=== PATIENT | female | born 1975 | race Caucasian/White ===

== ENCOUNTER → 2016-12-16 | Outpatient (CLI) | payer BC ==
[~2016-12-16] MED LIST: ATOR40TA59 PO; IOHEXOL 300 MG/ML 100ML VIAL. IV ONE; METF1000 PO
--- NOTE | 2016-12-16 16:17 | KCIC ---
Indication: Nausea and vomiting. Axial imaging through the abdomen and pelvis was performed after the administration of intravenous contrast. One or more of the following individualized dose reduction techniques were utilized for this examination: 1. Automated exposure control 2. Adjustment of the mA and/or kV according to patient size 3. Use of iterative reconstruction technique No prior studies are available for comparison. There is linear scarring or atelectasis in the right lower lobe. No discrete liver mass is detected. Gallbladder is unremarkable. There is a large amount of inflammatory stranding identified in the upper abdomen at the level of the pancreatic head and second portion of the duodenum. There is also some stranding in the left abdomen adjacent to the pancreatic tail and inferior aspect of the spleen. There is homogeneous enhancement to the pancreas. No pancreatic necrosis is identified. No well-formed fluid collection is identified. No free air is seen. There is some mild fluid-filled distention of the proximal small bowel. The remainder of the bowel is normal caliber. No free fluid in the abdomen or pelvis is seen. There are small cysts within both ovaries. The uterus and bladder are unremarkable. IMPRESSION: Moderate inflammatory changes are identified in the upper abdomen primarily in the region of the pancreas and proximal small bowel. Features are most suggestive of acute pancreatitis. No pancreatic necrosis or evidence of pseudocyst formation is identified at this time. Correlation with amylase and lipase levels is recommended. No other significant abnormality is seen. Electronically signed by: Ricardo Escobar MD (12/16/2016 4:13 PM)
== END | disposition home or self-care (01) ==
LOC: KCIC CT 15:30
PROVIDERS: ATTEND Nurse Practitioner Family
DX: R10.84 Generalized abdominal pain (principal); R11.2 Nausea with vomiting, unspecified
CPT/HCPCS: 74177; Q9967

== ENCOUNTER 2016-12-17 09:44 | Inpatient (IN) | payer BC ==
[~2016-12-17] VITALS: Ht 156.2 cm; Wt 63.5 kg
[2016-12-17] MEDS ORDERED: IV NORMAL SALINE 1000ML BAG 1,000 ML IV SCH (09:52)
--- NOTE | 2016-12-17 09:52 | PHYS DOC ---
Adult General Chief Complaint Chief Complaint: ABDOMINAL PAIN HPI HPI Patient is a 41 year old female with no significant medical history who presents today with nausea vomiting, left upper quadrant and flank pain bilaterally that began 7 days ago. Patient denies any fever. Denies any hematemesis or melena. She states she was seen by the PCP yesterday and had a CT scan which showed of pancreatitis. She states she was sent to the ED for further workup because though not able to draw any labs outpatient because she was very dehydrated. Review of Systems Review of Systems Constitutional: Denies fever or chills [] Eyes: Denies change in visual acuity, redness, or eye pain [] HENT: Denies nasal congestion or sore throat [] Respiratory: Denies cough or shortness of breath [] Cardiovascular: No additional information not addressed in HPI [] GI: Left upper quadrant abdominal pain : Bilateral flank pain Musculoskeletal: Denies back pain or joint pain [] Integument: Denies rash or skin lesions [] Neurologic: Denies headache, focal weakness or sensory changes [] Endocrine: Denies polyuria or polydipsia [] Current Medications Current Medications Current Medications Medications (Trade) Dose Ordered Sig/Carl Start Time Stop Time Status Last Admin Dose Admin Morphine Sulfate 4 mg PRN Q15MIN PRN 12/17/16 10:00 12/18/16 09:59 Ondansetron HCl (Zofran) 4 mg 1X ONCE 12/17/16 10:00 12/17/16 10:01 DC 12/17/16 10:52 4 MG Sodium Chloride 1,000 ml @ 1,000 mls/hr Q1H 12/17/16 09:52 12/17/16 10:51 DC 12/17/16 10:52 1,000 MLS/HR Allergies Allergies Allergies Coded Allergies Type Severity Reaction Last Updated Verified cephalexin Allergy Intermediate 12/17/16 Yes erythromycin base Allergy Intermediate 12/17/16 Yes Physical Exam Physical Exam Constitutional: Well developed, well nourished, no acute distress, non-toxic appearance. [] HENT: Normocephalic, atraumatic, bilateral external ears normal, oropharynx moist, no oral exudates, nose normal. [] Eyes: PERRLA, EOMI, conjunctiva normal, no discharge. [] Neck: Normal range of motion, no tenderness, supple, no stridor. [] Cardiovascular:Heart rate regular rhythm, no murmur [] Lungs & Thorax: Bilateral breath sounds clear to auscultation [] Abdomen: Bowel sounds normal, soft, mild left upper quadrant tenderness, no right lower quadrant or right upper quadrant tenderness, no masses, no pulsatile masses. [] Skin: Warm, dry, no erythema, no rash. [] Back: No tenderness, mild bilateral CVA tenderness. [] Extremities: No tenderness, no cyanosis, no clubbing, ROM intact, no edema. [] Neurologic: Alert and oriented X 3, normal motor function, normal sensory function, no focal deficits noted. [] Psychologic: Affect normal, judgement normal, mood normal. [] Current Patient Data Vital Signs Vital Signs Date Time Temp Pulse Resp B/P (MAP) Pulse Ox O2 Delivery O2 Flow Rate FiO2 12/17/16 13:03 78 18 153/91 (111) 100 Room Air 12/17/16 10:05 97.2 97.2 Lab Values Laboratory Tests Test 12/17/16 09:50 12/17/16 10:45 Urine Collection Type Unknown Urine Color Hellen Urine Clarity Clear Urine pH 6.0 Urine Specific [place] >=1.030 Urine Protein 30 mg/dL (NEG-TRACE) Urine Glucose (UA) >=1000 mg/dL (NEG) Urine Ketones (Stick) 15 mg/dL (NEG) Urine Blood Large (NEG) Urine Nitrite Negative (NEG) Urine Bilirubin Negative (NEG) Urine Urobilinogen Dipstick 1.0 mg/dL (0.2 mg/dL) Urine Leukocyte Esterase Negative (NEG) Urine RBC >40 /HPF (0-2) Urine WBC 0 /HPF (0-4) Urine Squamous Epithelial Cells Few /LPF Urine Bacteria Few /HPF (0-FEW) Urine Opiates Screen Pos (NEG) Urine Methadone Screen Neg (NEG) Urine Barbiturates Neg (NEG) Urine Phencyclidine Screen Neg (NEG) Urine Amphetamine/Methamphetamine Neg (NEG) Urine Benzodiazepines Screen Pos (NEG) Urine Cocaine Screen Neg (NEG) Urine Cannabinoids Screen Neg (NEG) Urine Ethyl Alcohol Neg (NEG) White Blood Count 12.1 x10^3/uL (4.0-11.0) H Red Blood Count 4.56 x10^6/uL (3.50-5.40) Hemoglobin 14.1 g/dL (12.0-15.5) Hematocrit 40.2 % (36.0-47.0) Mean Corpuscular Volume 88 fL (79-100) Mean Corpuscular Hemoglobin 31 pg (25-35) Mean Corpuscular Hemoglobin Concent 35 g/dL (31-37) Red Cell Distribution Width 13.7 % (11.5-14.5) Platelet Count 303 x10^3/uL (140-400) Neutrophils (%) (Auto) 65 % (31-73) Lymphocytes (%) (Auto) 20 % (24-48) L Monocytes (%) (Auto) 12 % (0-9) H Eosinophils (%) (Auto) 3 % (0-3) Basophils (%) (Auto) 1 % (0-3) Neutrophils # (Auto) 7.8 x10^3uL (1.8-7.7) H Lymphocytes # (Auto) 2.4 x10^3/uL (1.0-4.8) Monocytes # (Auto) 1.4 x10^3/uL (0.0-1.1) H Eosinophils # (Auto) 0.3 x10^3/uL (0.0-0.7) Basophils # (Auto) 0.1 x10^3/uL (0.0-0.2) Segmented Neutrophils % 45 % (35-66) Band Neutrophils % 13 % (0-9) H Lymphocytes % 22 % (24-48) L Monocytes % 16 % (0-10) H Eosinophils % 1 % (0-5) Metamyelocytes % 3 % (0-0) H Platelet Estimate Adequate (ADEQUATE) Prothrombin Time 12.8 SEC (11.7-14.0) Prothrombin Time INR 1.0 (0.8-1.1) Sodium Level 135 mmol/L (136-145) L Potassium Level 3.3 mmol/L (3.5-5.1) L Chloride Level 95 mmol/L (98-107) L Carbon Dioxide Level 29 mmol/L (21-32) Anion Gap 11 (6-14) Blood Urea Nitrogen 12 mg/dL (7-20) Creatinine 1.1 mg/dL (0.6-1.0) H Estimated GFR (Cockcroft-Gault) 55.0 Glucose Level 305 mg/dL (70-99) H Calcium Level 9.9 mg/dL (8.5-10.1) Magnesium Level 2.2 mg/dL (1.8-2.4) Total Bilirubin 0.4 mg/dL (0.2-1.0) Direct Bilirubin 0.2 mg/dL (0.0-0.2) Aspartate Amino Transferase (AST) 50 U/L (15-37) H Alanine Aminotransferase (ALT) 91 U/L (14-59) H Alkaline Phosphatase 226 U/L (46-116) H Creatine Kinase 50 U/L (26-192) Creatine Kinase MB (Mass) < 0.5 ng/mL (0.0-3.6) Creatine Kinase MB Relative Index % (0-4) Troponin I Quantitative < 0.017 ng/mL (0.000-0.055) XI-Wxa-B-Type Natriuretic Peptide 31 pg/mL (0-124) Total Protein 8.4 g/dL (6.4-8.2) H Albumin 3.1 g/dL (3.4-5.0) L Lipase 426 U/L (73-393) H Thyroid Stimulating Hormone (TSH) 1.533 uIU/mL (0.358-3.74) Serum Test, Qualitative Negative (NEG) Laboratory Tests 12/17/16 10:45 Laboratory Tests 12/17/16 10:45 EKG EKG [] Radiology/Procedures Radiology/Procedures [] Course & Med Decision Making Course & Med Decision Making Pertinent Labs and Imaging studies reviewed. (See chart for details) Patient is in the ED with left upper quadrant abdominal pain as well as flank pain after being diagnosed with pancreatitis yesterday as an outpatient. CBC with a WBC of 12.1 and a bandemia. CMP with alkaline phosphatase of 226, AST 50 , ALT 91, lipase 426. Patient was admitted under Dr. Aguilar. GI consult was placed. Dragon Disclaimer Dragon Disclaimer This electronic medical record was generated, in whole or in part, using a voice recognition dictation system. Departure Departure Impression: Primary Impression: Pancreatitis Additional Impressions: Nausea and vomiting Intractable abdominal pain Disposition: ADMITTED INPATIENT Admitting Physician: Corrie Aguilar Condition: STABLE Referrals: STEPHEN NICHOLSON (PCP) Problem Qualifiers Primary Impression: Pancreatitis Chronicity: acute Pancreatitis type: unspecified pancreatitis type Acute pancreatitis complication: unspecified Qualified Codes: K85.90 - Acute pancreatitis without necrosis or infection, unspecified Additional Impressions: Nausea and vomiting Vomiting type: unspecified Vomiting Intractability: intractable Qualified Codes: R11.2 - Nausea with vomiting, unspecified RAUL HERNANDEZ MD December 17, 2016 09:52 PHONG FERNANDES APRN December 17, 2016 15:44
[2016-12-17] MEDS ORDERED: ONDANSETRON PF 4 MG/2 ML VIAL. IV ONE (10:00)
[2016-12-17] MEDS ORDERED: MORPHINE SULFATE 4 MG/ML DISP.SYRIN. IV/SQ PRN (10:00)
--- NOTE | 2016-12-17 10:47 | RAD ---
Exam: AP portable chest. History: Nausea. Comparison: None. Findings: The heart and mediastinal structures are within normal limits for size. Lungs are without infiltrate. No pneumothorax or pleural effusion is appreciated. Impression: 1. No acute cardiopulmonary process.
[2016-12-17 11:00] LABS: BILIRUBIN,URINE NEGATIVE (NEG); GLUCOSE,URINE >=1000 mg/dL (NEG); NITRITE,URINE NEGATIVE (NEG); PROTEIN,URINE 30 mg/dL (NEG-TRACE)
[2016-12-17 11:02] LABS: BASO # 0.1 x10^3/uL (0.0-0.2); BASO % 1 % (0-3); EOS % 3 % (0-3); HEMATOCRIT 40.2 % (36.0-47.0); HEMOGLOBIN 14.1 g/dL (12.0-15.5); LYMPH # 2.4 x10^3/uL (1.0-4.8); LYMPH % 20 % (24-48); MEAN CORPUSCULAR HEMOGLOBIN 31 pg (25-35); MEAN CORPUSCULAR HGB CONC 35 g/dL (31-37); MEAN CORPUSCULAR VOLUME 88 fL (79-100); MONO % 12 % (0-9); NEUT % 65 % (31-73); PLATELET COUNT 303 x10^3/uL (140-400); RED BLOOD COUNT 4.56 x10^6/uL (3.50-5.40); RED CELL DISTRIBUTION WIDTH 13.7 % (11.5-14.5); WHITE BLOOD COUNT 12.1 x10^3/uL (4.0-11.0)
[2016-12-17 11:06] LABS: BARBITURATES NEG (NEG); BENZODIAZEPINES POS (NEG); CANNABINOIDS NEG (NEG); COCAINE NEG (NEG); METHADONE NEG (NEG); OPIATES POS (NEG); PHENCYCLIDINE NEG (NEG)
[2016-12-17 11:11] LABS: CALCIUM 9.9 mg/dL (8.5-10.1); CREATININE 1.1 mg/dL (0.6-1.0); POTASSIUM 3.3 mmol/L (3.5-5.1)
[2016-12-17 11:17] LABS: ALBUMIN 3.1 g/dL (3.4-5.0); DIRECT BILIRUBIN 0.2 mg/dL (0.0-0.2); MAGNESIUM 2.2 mg/dL (1.8-2.4); PROTHROMBIN TIME PATIENT 12.8 SEC (11.7-14.0); TOTAL BILIRUBIN 0.4 mg/dL (0.2-1.0); TOTAL PROTEIN 8.4 g/dL (6.4-8.2)
[2016-12-17 11:21] LABS: NEG OBC SER NEG; POS OBC SER POS
[2016-12-17 11:25] LABS: CREATINE KINASE 50 U/L (26-192)
[2016-12-17 11:26] LABS: CKMB MASS < 0.5 ng/mL (0.0-3.6)
--- NOTE | 2016-12-17 11:33 | EKG ---
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
[2016-12-17 11:35] LABS: BACTERIA,URINE FEW /HPF (0-FEW); RBC,URINE >40 /HPF (0-2); SQUAMOUS EPITHELIAL CELL,UR FEW /LPF; WBC,URINE 0 /HPF (0-4)
[2016-12-17 13:26] LABS: % EOS 1 % (0-5); PLT ESTIMATE ADEQUATE (ADEQUATE)
[2016-12-17] MEDS ORDERED: MORPHINE SULFATE 10 MG/ML VIAL. IV ONE (14:00)
--- NOTE | 2016-12-17 14:59 | ACF ---
Admit Criteria Forms Admit Criteria Forms Admit Criteria Forms PANCREATITIS Clinical Indications for Admission to Inpatient Care (Place 'X' for any and all applicable criteria): Admission is indicated for 1 or more of the following (1)(2)(3)(4): [ ]I. Acute pancreatitis[A] as indicated by 2 or MORE of the following: [ ]a) Abdominal pain (eg, epigastric, left upper quadrant) [ ]b) Serum amylase or serum lipase greater than 3 times the upper limit of normal [ ]c) Characteristic findings from abdominal imaging (eg, pancreatic inflammation, pancreatic necrosis, peripancreatic fluid collection)[B] [X]II. Pancreatitis (acute or chronic ) requiring inpatient care as indicated by 1 or more of the following [ ]a) Inability to maintain oral hydration Hypoxemia [ ]b) Evidence of infection (eg, fever, peripancreatic abscess) [X]c) Severe pain requiring acute inpatient management [ ]d) Hemodynamic instability [ ]e) Hypoxemia [ ]f) Acute renal failure [ ]g) Severe electrolyte abnormalities Extended stay beyond goal length of stay may be needed for (1)(11) [ ]a) Severe acute pancreatitis (10)(19) [ ]b) Persistent symptoms, ascites, or pleural effusion [ ]c) Abdominal compartment syndrome (10) [ ]d) Late complications [ ]e) Gallstones in gallbladder [ ]f) Acute renal failure (27) The original [employer] content created by [employer] has been revised. The portions of the content which have been revised are identified through the use of italic text or in bold,and [facility] has neither reviewed nor approved the modified material.All other unmodified content is copyright [facility]. Please see references footnoted in the original [employer] edition 2016 TOMA REHMAN December 17, 2016 14:59
[2016-12-17] MEDS ORDERED: IV NORMAL SALINE 1000ML BAG 1,000 ML IV ONE (15:00)
[2016-12-17] MEDS ORDERED: ONDANSETRON PF 4 MG/2 ML VIAL. IV PRN ×2 (15:00→17:02)
--- NOTE | 2016-12-17 15:59 | PDOC2 ---
GI CONSULT Reason For Consult: Pancreatitis HPI: HPI: 41 y/o female seen in ER w/ pending admission. Reports has been ill since last w/ diffuse abdominal discomfort w/ radiation to bilateral flanks. Denies precipitating events, has never been sick w/ this before. Also had vomiting from to Thursday and hasn't really eaten much since then. [place] "hot" like she had a fever on and Thursday. Saw her PCP, had a CT as an outpatient on 12/16 which was suggestive of acute pancreatitis, unremarkable gallbladder. PCP unable to draw labs, sent to ER for this reason. H/o constipation controlled w/ Miralax. Denies reflux/heartburn, dysphagia, hematochezia, melena, hematemesis. No h/o liver or gallbladder problems. No previous colonoscopy, possibly had EGD at [facility] years ago. No NSAIDs. Denies daily medication, says has tried nothing for pain at home. Some tachycardia and hypertension in ER. Labs: WBC 12.1, lipase 426, Alk Phos 226, AST 50, ALT 91. Tox + opiates and benzos. CT below. PMH: PMH: constipation, , tubal ligation FH: Family History: No pertinent hx (denies gallbladder, pancreas, liver, GI malignancy, IBD) Social History: Smoke: <1 pack per day ALCOHOL: occassional (1-2 drinks weekly) Drugs: None ROS: GEN: +fever HEENT: Denies blurred vision, sore throat CV: Denies chest pain RESP: Denies shortness of air, cough GI: Per HPI : Denies hematuria, dysuria ENDO: Denies weight changes NEURO: Denies confusion, dizziness MSK: Denies weakness, joint pain/swelling SKIN: Denies jaundice, pruritus Vitals: Vitals: Vital Signs Date Time Temp Pulse Resp B/P (MAP) Pulse Ox O2 Delivery O2 Flow Rate FiO2 12/17/16 14:16 18 12/17/16 14:03 86 125/88 (100) 100 Room Air 12/17/16 10:05 97.2 97.2 Labs: Labs: Laboratory Tests Test 12/17/16 09:50 12/17/16 10:45 Urine Collection Type Unknown Urine Color Hellen Urine Clarity Clear Urine pH 6.0 Urine Specific [place] >=1.030 Urine Protein 30 mg/dL (NEG-TRACE) Urine Glucose (UA) >=1000 mg/dL (NEG) Urine Ketones (Stick) 15 mg/dL (NEG) Urine Blood Large (NEG) Urine Nitrite Negative (NEG) Urine Bilirubin Negative (NEG) Urine Urobilinogen Dipstick 1.0 mg/dL (0.2 mg/dL) Urine Leukocyte Esterase Negative (NEG) Urine RBC >40 /HPF (0-2) Urine WBC 0 /HPF (0-4) Urine Squamous Epithelial Cells Few /LPF Urine Bacteria Few /HPF (0-FEW) Urine Opiates Screen Pos (NEG) Urine Methadone Screen Neg (NEG) Urine Barbiturates Neg (NEG) Urine Phencyclidine Screen Neg (NEG) Urine Amphetamine/Methamphetamine Neg (NEG) Urine Benzodiazepines Screen Pos (NEG) Urine Cocaine Screen Neg (NEG) Urine Cannabinoids Screen Neg (NEG) Urine Ethyl Alcohol Neg (NEG) White Blood Count 12.1 x10^3/uL (4.0-11.0) Red Blood Count 4.56 x10^6/uL (3.50-5.40) Hemoglobin 14.1 g/dL (12.0-15.5) Hematocrit 40.2 % (36.0-47.0) Mean Corpuscular Volume 88 fL (79-100) Mean Corpuscular Hemoglobin 31 pg (25-35) Mean Corpuscular Hemoglobin Concent 35 g/dL (31-37) Red Cell Distribution Width 13.7 % (11.5-14.5) Platelet Count 303 x10^3/uL (140-400) Neutrophils (%) (Auto) 65 % (31-73) Lymphocytes (%) (Auto) 20 % (24-48) Monocytes (%) (Auto) 12 % (0-9) Eosinophils (%) (Auto) 3 % (0-3) Basophils (%) (Auto) 1 % (0-3) Neutrophils # (Auto) 7.8 x10^3uL (1.8-7.7) Lymphocytes # (Auto) 2.4 x10^3/uL (1.0-4.8) Monocytes # (Auto) 1.4 x10^3/uL (0.0-1.1) Eosinophils # (Auto) 0.3 x10^3/uL (0.0-0.7) Basophils # (Auto) 0.1 x10^3/uL (0.0-0.2) Segmented Neutrophils % 45 % (35-66) Band Neutrophils % 13 % (0-9) Lymphocytes % 22 % (24-48) Monocytes % 16 % (0-10) Eosinophils % 1 % (0-5) Metamyelocytes % 3 % (0-0) Platelet Estimate Adequate (ADEQUATE) Prothrombin Time 12.8 SEC (11.7-14.0) Prothromb Time International Ratio 1.0 (0.8-1.1) Sodium Level 135 mmol/L (136-145) Potassium Level 3.3 mmol/L (3.5-5.1) Chloride Level 95 mmol/L (98-107) Carbon Dioxide Level 29 mmol/L (21-32) Anion Gap 11 (6-14) Blood Urea Nitrogen 12 mg/dL (7-20) Creatinine 1.1 mg/dL (0.6-1.0) Estimated GFR (Cockcroft-Gault) 55.0 Glucose Level 305 mg/dL (70-99) Calcium Level 9.9 mg/dL (8.5-10.1) Magnesium Level 2.2 mg/dL (1.8-2.4) Total Bilirubin 0.4 mg/dL (0.2-1.0) Direct Bilirubin 0.2 mg/dL (0.0-0.2) Aspartate Amino Transf (AST/SGOT) 50 U/L (15-37) Alanine Aminotransferase (ALT/SGPT) 91 U/L (14-59) Alkaline Phosphatase 226 U/L (46-116) Creatine Kinase 50 U/L (26-192) Creatine Kinase MB (Mass) < 0.5 ng/mL (0.0-3.6) Creatine Kinase MB Relative Index % (0-4) Troponin I Quantitative < 0.017 ng/mL (0.000-0.055) LJ-Cci-H-Type Natriuretic Peptide 31 pg/mL (0-124) Total Protein 8.4 g/dL (6.4-8.2) Albumin 3.1 g/dL (3.4-5.0) Lipase 426 U/L (73-393) Thyroid Stimulating Hormone (TSH) 1.533 uIU/mL (0.358-3.74) Serum Test, Qualitative Negative (NEG) Allergies: Coded Allergies: cephalexin (Verified Allergy, Intermediate, 12/17/16) erythromycin base (Verified Allergy, Intermediate, 12/17/16) Medications: Current Medications Medications (Trade) Dose Ordered Sig/Carl Route PRN Reason Start Time Stop Time Status Last Admin Dose Admin Sodium Chloride 1,000 ml @ 1,000 mls/hr Q1H IV 12/17/16 09:52 12/17/16 10:51 DC 12/17/16 10:52 Ondansetron HCl (Zofran) 4 mg 1X ONCE IV 12/17/16 10:00 12/17/16 10:01 DC 12/17/16 10:52 Morphine Sulfate 5 mg 1X ONCE IV 12/17/16 14:00 12/17/16 14:01 DC 12/17/16 14:16 Imaging: Imaging: CXR 12/17/16 Impression: 1. No acute cardiopulmonary process. CT A/P w/ IV contrast 12/16/16 There is linear scarring or atelectasis in the right lower lobe. No discrete liver mass is detected. Gallbladder is unremarkable. There is a large amount of inflammatory stranding identified in the upper abdomen at the level of the pancreatic head and second portion of the duodenum. There is also some stranding in the left abdomen adjacent to the pancreatic tail and inferior aspect of the spleen. There is homogeneous enhancement to the pancreas. No pancreatic necrosis is identified. No well-formed fluid collection is identified. No free air is seen. There is some mild fluid-filled distention of the proximal small bowel. The remainder of the bowel is normal caliber. No free fluid in the abdomen or pelvis is seen. There are small cysts within both ovaries. The uterus and bladder are unremarkable. IMPRESSION: Moderate inflammatory changes are identified in the upper abdomen primarily in the region of the pancreas and proximal small bowel. Features are most suggestive of acute pancreatitis. No pancreatic necrosis or evidence of pseudocyst formation is identified at this time. Correlation with amylase and lipase levels is recommended. No other significant abnormality is seen. PE: GEN: NAD HEENT: Atraumatic, PERRL LUNGS: CTAB HEART: RRR ABD: BS+, tenderness most prominent periumbilical to RUQ, also toward right flank EXTREMITY: No edema SKIN: No rashes, no jaundice NEURO/PSYCH: A & O 3 A/P: A/P: Abdominal pain, n/v, ?fever -onset 6 days ago, had outpt CT Abnormal CT, elevated lipase, elevated LFTs, leukocytosis -inflammatory changes in upper abdomen in region of the pancreas and proximal small bowel, most suggestive of acute pancreatitis -gallbladder unremarkable, no h/o pancreatitis, denies significant alcohol use Constipation - controlled w/ Miralax CRC screen -no previous colonoscopy, average risk -- Unclear etiology at this point. Medical therapy for pancreatitis. NPO w/ serial labs. Will also check abd US r/o cholelithiasis. TAYLOR TERRAZAS December 17, 2016 15:59
[2016-12-17 16:00] VITALS: BP 121/76
--- NOTE | 2016-12-17 17:12 | PDOC1 ---
History and Physical Date of Admission Date of Admission DATE: 12/17/16 TIME: 17:03 Identification/Chief Complaint Chief Complaint abd pain, vomiting Problems: Source Source: Caregiver, Chart review, Patient History of Present Illness History of Present Illness 41 y.o Female with no significant past medical comes in with 1 week hx acute abd pain, mostly R side, maybe epigastric too, no radiation to back, 10.10, no identifiable alleviating factors, started to have emesis few days ago hence went to ER. Prior to ER, sought care, PCP did CT abd which apparently showed normal GB but pancreatitis,. PT unable to keep stuff down per ER (pt claims she can keep liquids down), hence admitted, K ok, Crea ok, VS ok, LIpase 400s, but pt significantly tender on abd exam. LFTs mildly high in the 50s, alk phosp mid 200s, BS 300s (not known DM), WBC 12, Crea 1.1, K low 3.3. Claims not a drinker, GB still present, non obese, never had acute pancreatitis before Past Medical History Cardiovascular: No pertinent hx Pulmonary: No pertinent hx GI: No pertinent hx Heme/Onc: No pertinent hx Hepatobiliary: No pertinent hx Psych: No pertinent hx Rheumatologic: No pertinent hx Infectious disease: No pertinent hx ENT: No pertinent hx Renal/: No pertinent hx Endocrine: No pertinent hx Dermatology: No pertinent hx Past Surgical History Past Surgical History: , Tubal Ligation Family History Family History: No Significant (reveiwed, no signif) Social History Smoke: No ALCOHOL: none (1-2 drinks weekly) Drugs: None Current Problem List Problem List Problems Medical Problems: (1) Intractable abdominal pain Status: Acute (2) Nausea and vomiting Status: Acute (3) Pancreatitis Status: Acute Problems: Current Medications Current Medications Current Medications Morphine Sulfate 4 mg PRN Q15MIN PRN IV/SQ PAIN GREATER THAN 3/10; Start at 10:00; Stop 12/18/16 at 09:59 Sodium Chloride 1,000 ml @ 1,000 mls/hr Q1H IV Last administered on 12/17/16 10:52; Start 12/17/16 at 09:52; Stop 12/17/16 at 10:51; Status DC Ondansetron HCl (Zofran) 4 mg 1X ONCE IV Last administered on 12/17/16 10:52 ; Start 12/17/16 at 10:00; Stop 12/17/16 at 10:01; Status DC Morphine Sulfate 5 mg 1X ONCE IV Last administered on 12/17/16 14:16; Start 12/17/16 at 14:00; Stop 12/17/16 at 14:01; Status DC Ondansetron HCl (Zofran) 4 mg PRN Q8HRS PRN IV NAUSEA/VOMITING; Start 12/17/16 at 15:00; Stop 12/18/16 at 14:59 Morphine Sulfate 4 mg PRN Q2HR PRN IV PAIN; Start 12/17/16 at 15:00; Stop at 14:59 Sodium Chloride 1,000 ml @ 125 mls/hr 1X ONCE IV Last administered on 16:53; Start 12/17/16 at 15:00; Stop 12/17/16 at 22:59 Active Scripts Active Reported No Known Medications Prior To Admisstion (Info) Each 1 Each Allergies Allergies: Coded Allergies: cephalexin (Verified Allergy, Intermediate, 12/17/16) erythromycin base (Verified Allergy, Intermediate, 12/17/16) ROS General: No: Chills, Night Sweats, Fatigue, Malaise, Appetite, Other PSYCHOLOGICAL ROS: No: Anxiety, Behavioral Disorder, Concentration difficultie , Decreased libido, Depression, Disorientation, Hallucinations, Hostility, Irritablity, Memory difficulties, Mood Swings, Obsessive thoughts, Physical abuse, Sexual abuse, Sleep disturbances, Suicidal ideation, Other Eyes: No Blurry vision, No Decreased vision, No Double vision, No Dry eyes, No Excessive tearing, No Eye Pain, No Itchy Eyes, No Loss of vision, No Photophobia , No Scotomata, No Uses contacts, No Uses glasses, No Other HEENT: No: Heacaches, Visual Changes, Hearing change, Nasal congestion, Nasal discharge, Oral lesions, Sinus pain, Sore Throat, Epistaxis, Sneezing, Snoring, Tinnitus, Vertigo, Vocal changes, Other ALLERGY AND IMMUNOLOGY: No: Hives, Insect Bite Sensitivity, Itchy/Watery Eyes, Nasal Congestion, Post Nasal Drip, Seasonal Allergies, Other Hematological and Lymphatic: No: Bleeding Problems, Blood Clots, Blood Transfusions, Brusing, Night Sweats, Pallor, Swollen Lymph Nodes, Other ENDOCRINE: No: Breast Changes, Galactorrhea, Hair Pattern Changes, Hot Flashes , Malaise/lethargy, Mood Swings, Palpitations, Polydipsia/polyuria, Skin Changes , Temperature Intolerance, Unexpected Weight Changes, Other Breast: No New/Changing Breast Lumps, No Nipple changes, No Nipple discharge, No Other Respiratory: No: Cough, Hemoptysis, Orthopnea, Pleuritic Pain, Shortness of breath, SOB with excertion, Sputum Changes, Stridor, Tachypnea, Wheezing, Other Cardiovascular: No Chest Pain, No Palpitations, No Orthopnea, No Paroxysmal Noc. Dyspnea, No Edema, No Lt Headedness, No Other Gastrointestinal: Yes Nausea, Yes Vomiting, Yes Abdominal Pain Genitourinary: No Dysuria, No Frequency, No Incontinence, No Hematuria, No Retention, No Discharge, No Urgency, No Pain, No Flank Pain, No Other, No , No , No , No , No , No , No Musculoskeletal: No Gait Disturbance, No Joint Pain, No Joint Stiffness, No Joint Swelling, No Muscle Pain, No Muscular Weakness, No Pain In:, No Swelling In:, No Other Neurological: No Behavorial Changes, No Bowel/Bladder ControlChng, No Confusion , No Dizziness, No Gait Disturbance, No Headaches, No Impaired Coord/balance, No Memory Loss, No Numbness/Tingling, No Seizures, No Speech Problems, No Tremors, No Visual Changes, No Weakness, No Other Skin: No Dry Skin, No Eczema, No Hair Changes, No Lumps, No Mole Changes, No Mottling, No Nail Changes, No Pruritus, No Rash, No Skin Lesion Changes, No Other, No Acne Physical Exam General: Alert, Oriented X3, Cooperative, No acute distress, mild distress, Other (from pain on abd exam) HEENT: Atraumatic, PERRLA Lungs: Clear to auscultation Heart: S1S2, RRR, no thrills, no rubs, no gallops, no murmurs Cardiovascular: S1, S2 Breasts: Normal, Rt breast nml w/o mass, Lt breast nml w/o mass, Nipples normal Abdomen: Soft, Other (tenderness epigastric and rUQ, no guarding, pos BS) Rectal Exam: not examined PELVIC: Nml ext genitalia Extremities: No clubbing, No cyanosis, No edema, Normal pulses, No tenderness/ swelling Skin: No rashes, No breakdown, No significant lesion Neuro: Normal gait, Normal speech, Strength at 5/5 X4 ext, Normal tone, Sensation intact, Cranial nerves 3-12 NL, Reflexes 2+ Psych/Mental Status: Mental status NL, Mood NL Vitals Vitals Vital Signs Date Time Temp Pulse Resp B/P (MAP) Pulse Ox O2 Delivery O2 Flow Rate FiO2 12/17/16 16:00 97.9 75 18 121/76 (91) 93 Room Air 97.9 Labs Labs Laboratory Tests Test 12/17/16 09:50 12/17/16 10:45 Urine Collection Type Unknown Urine Color Hellen Urine Clarity Clear Urine pH 6.0 Urine Specific Pyatt >=1.030 Urine Protein 30 mg/dL (NEG-TRACE) Urine Glucose (UA) >=1000 mg/dL (NEG) Urine Ketones (Stick) 15 mg/dL (NEG) Urine Blood Large (NEG) Urine Nitrite Negative (NEG) Urine Bilirubin Negative (NEG) Urine Urobilinogen Dipstick 1.0 mg/dL (0.2 mg/dL) Urine Leukocyte Esterase Negative (NEG) Urine RBC >40 /HPF (0-2) Urine WBC 0 /HPF (0-4) Urine Squamous Epithelial Cells Few /LPF Urine Bacteria Few /HPF (0-FEW) Urine Opiates Screen Pos (NEG) Urine Methadone Screen Neg (NEG) Urine Barbiturates Neg (NEG) Urine Phencyclidine Screen Neg (NEG) Urine Amphetamine/Methamphetamine Neg (NEG) Urine Benzodiazepines Screen Pos (NEG) Urine Cocaine Screen Neg (NEG) Urine Cannabinoids Screen Neg (NEG) Urine Ethyl Alcohol Neg (NEG) White Blood Count 12.1 x10^3/uL (4.0-11.0) Red Blood Count 4.56 x10^6/uL (3.50-5.40) Hemoglobin 14.1 g/dL (12.0-15.5) Hematocrit 40.2 % (36.0-47.0) Mean Corpuscular Volume 88 fL (79-100) Mean Corpuscular Hemoglobin 31 pg (25-35) Mean Corpuscular Hemoglobin Concent 35 g/dL (31-37) Red Cell Distribution Width 13.7 % (11.5-14.5) Platelet Count 303 x10^3/uL (140-400) Neutrophils (%) (Auto) 65 % (31-73) Lymphocytes (%) (Auto) 20 % (24-48) Monocytes (%) (Auto) 12 % (0-9) Eosinophils (%) (Auto) 3 % (0-3) Basophils (%) (Auto) 1 % (0-3) Neutrophils # (Auto) 7.8 x10^3uL (1.8-7.7) Lymphocytes # (Auto) 2.4 x10^3/uL (1.0-4.8) Monocytes # (Auto) 1.4 x10^3/uL (0.0-1.1) Eosinophils # (Auto) 0.3 x10^3/uL (0.0-0.7) Basophils # (Auto) 0.1 x10^3/uL (0.0-0.2) Segmented Neutrophils % 45 % (35-66) Band Neutrophils % 13 % (0-9) Lymphocytes % 22 % (24-48) Monocytes % 16 % (0-10) Eosinophils % 1 % (0-5) Metamyelocytes % 3 % (0-0) Platelet Estimate Adequate (ADEQUATE) Prothrombin Time 12.8 SEC (11.7-14.0) Prothromb Time International Ratio 1.0 (0.8-1.1) Sodium Level 135 mmol/L (136-145) Potassium Level 3.3 mmol/L (3.5-5.1) Chloride Level 95 mmol/L (98-107) Carbon Dioxide Level 29 mmol/L (21-32) Anion Gap 11 (6-14) Blood Urea Nitrogen 12 mg/dL (7-20) Creatinine 1.1 mg/dL (0.6-1.0) Estimated GFR (Cockcroft-Gault) 55.0 Glucose Level 305 mg/dL (70-99) Calcium Level 9.9 mg/dL (8.5-10.1) Magnesium Level 2.2 mg/dL (1.8-2.4) Total Bilirubin 0.4 mg/dL (0.2-1.0) Direct Bilirubin 0.2 mg/dL (0.0-0.2) Aspartate Amino Transf (AST/SGOT) 50 U/L (15-37) Alanine Aminotransferase (ALT/SGPT) 91 U/L (14-59) Alkaline Phosphatase 226 U/L (46-116) Creatine Kinase 50 U/L (26-192) Creatine Kinase MB (Mass) < 0.5 ng/mL (0.0-3.6) Creatine Kinase MB Relative Index % (0-4) Troponin I Quantitative < 0.017 ng/mL (0.000-0.055) YI-Qln-E-Type Natriuretic Peptide 31 pg/mL (0-124) Total Protein 8.4 g/dL (6.4-8.2) Albumin 3.1 g/dL (3.4-5.0) Lipase 426 U/L (73-393) Thyroid Stimulating Hormone (TSH) 1.533 uIU/mL (0.358-3.74) Serum Test, Qualitative Negative (NEG) Laboratory Tests Test 12/17/16 09:50 12/17/16 10:45 Urine Collection Type Unknown Urine Color Hellen Urine Clarity Clear Urine pH 6.0 Urine Specific Pyatt >=1.030 Urine Protein 30 mg/dL (NEG-TRACE) Urine Glucose (UA) >=1000 mg/dL (NEG) Urine Ketones (Stick) 15 mg/dL (NEG) Urine Blood Large (NEG) Urine Nitrite Negative (NEG) Urine Bilirubin Negative (NEG) Urine Urobilinogen Dipstick 1.0 mg/dL (0.2 mg/dL) Urine Leukocyte Esterase Negative (NEG) Urine RBC >40 /HPF (0-2) Urine WBC 0 /HPF (0-4) Urine Squamous Epithelial Cells Few /LPF Urine Bacteria Few /HPF (0-FEW) Urine Opiates Screen Pos (NEG) Urine Methadone Screen Neg (NEG) Urine Barbiturates Neg (NEG) Urine Phencyclidine Screen Neg (NEG) Urine Amphetamine/Methamphetamine Neg (NEG) Urine Benzodiazepines Screen Pos (NEG) Urine Cocaine Screen Neg (NEG) Urine Cannabinoids Screen Neg (NEG) Urine Ethyl Alcohol Neg (NEG) White Blood Count 12.1 x10^3/uL (4.0-11.0) Red Blood Count 4.56 x10^6/uL (3.50-5.40) Hemoglobin 14.1 g/dL (12.0-15.5) Hematocrit 40.2 % (36.0-47.0) Mean Corpuscular Volume 88 fL (79-100) Mean Corpuscular Hemoglobin 31 pg (25-35) Mean Corpuscular Hemoglobin Concent 35 g/dL (31-37) Red Cell Distribution Width 13.7 % (11.5-14.5) Platelet Count 303 x10^3/uL (140-400) Neutrophils (%) (Auto) 65 % (31-73) Lymphocytes (%) (Auto) 20 % (24-48) Monocytes (%) (Auto) 12 % (0-9) Eosinophils (%) (Auto) 3 % (0-3) Basophils (%) (Auto) 1 % (0-3) Neutrophils # (Auto) 7.8 x10^3uL (1.8-7.7) Lymphocytes # (Auto) 2.4 x10^3/uL (1.0-4.8) Monocytes # (Auto) 1.4 x10^3/uL (0.0-1.1) Eosinophils # (Auto) 0.3 x10^3/uL (0.0-0.7) Basophils # (Auto) 0.1 x10^3/uL (0.0-0.2) Segmented Neutrophils % 45 % (35-66) Band Neutrophils % 13 % (0-9) Lymphocytes % 22 % (24-48) Monocytes % 16 % (0-10) Eosinophils % 1 % (0-5) Metamyelocytes % 3 % (0-0) Platelet Estimate Adequate (ADEQUATE) Prothrombin Time 12.8 SEC (11.7-14.0) Prothromb Time International Ratio 1.0 (0.8-1.1) Sodium Level 135 mmol/L (136-145) Potassium Level 3.3 mmol/L (3.5-5.1) Chloride Level 95 mmol/L (98-107) Carbon Dioxide Level 29 mmol/L (21-32) Anion Gap 11 (6-14) Blood Urea Nitrogen 12 mg/dL (7-20) Creatinine 1.1 mg/dL (0.6-1.0) Estimated GFR (Cockcroft-Gault) 55.0 Glucose Level 305 mg/dL (70-99) Calcium Level 9.9 mg/dL (8.5-10.1) Magnesium Level 2.2 mg/dL (1.8-2.4) Total Bilirubin 0.4 mg/dL (0.2-1.0) Direct Bilirubin 0.2 mg/dL (0.0-0.2) Aspartate Amino Transf (AST/SGOT) 50 U/L (15-37) Alanine Aminotransferase (ALT/SGPT) 91 U/L (14-59) Alkaline Phosphatase 226 U/L (46-116) Creatine Kinase 50 U/L (26-192) Creatine Kinase MB (Mass) < 0.5 ng/mL (0.0-3.6) Creatine Kinase MB Relative Index % (0-4) Troponin I Quantitative < 0.017 ng/mL (0.000-0.055) VV-Noc-N-Type Natriuretic Peptide 31 pg/mL (0-124) Total Protein 8.4 g/dL (6.4-8.2) Albumin 3.1 g/dL (3.4-5.0) Lipase 426 U/L (73-393) Thyroid Stimulating Hormone (TSH) 1.533 uIU/mL (0.358-3.74) Serum Test, Qualitative Negative (NEG) VTE Prophylaxis Ordered VTE Prophylaxis Devices: Yes VTE Pharmacological Prophylaxi: Yes Assessment/Plan Assessment/Plan 1. Acute pancreatitis, first episode 2. NOn etoh drinker 3. Mild hypokalemia sec to emesis/GI loss 4. Elevated LFTs, mild 5./ elevated alk phosph 6. elevated BS (300s) with no dx DM 7, ANTIONE, sec to GI loss PLAN: Admit 2 MN Need to check GB - make sure no GB stones though on CT report per pt account, claims was told was normal Check hgba1c given high BS COnsult GI NPO IVF aggressive Replac K iV since nPO Recheck lipase and BMP sara- monitor crea pain control Seen at ER LONG Munoz MD December 17, 2016 17:12
[2016-12-17] MEDS: IV NORMAL SALINE 1000ML BAG 1,000 ML IV SCH (17:15)
[2016-12-17] MEDS: POTASSIUM CHLORIDE 10MEQ 100 ML IV SCH ×2 (17:36→21:18)
[2016-12-17] MEDS: MORPHINE SULFATE 4 MG/ML DISP.SYRIN. IV PRN ×2 (17:41→21:19)
[2016-12-17 19:00] VITALS: BP 125/78
[2016-12-17] MEDS: FAMOTIDINE 20 MG/2 ML VIAL IVP SCH (21:17)
[2016-12-17 23:00] VITALS: BP 120/80
[2016-12-18] MEDS ORDERED: diphenhydrAMINE 50 MG/ML VIAL IVP PRN (01:00)
[2016-12-18] MEDS: IV NORMAL SALINE 1000ML BAG 1,000 ML IV SCH ×3 (02:20→19:48)
[2016-12-18 03:00] VITALS: BP 110/75
[2016-12-18] MEDS: MORPHINE SULFATE 4 MG/ML DISP.SYRIN. IV PRN (04:31)
[2016-12-18 05:43] LABS: BASO # 0.1 x10^3/uL (0.0-0.2); BASO % 1 % (0-3); EOS % 3 % (0-3); HEMATOCRIT 38.2 % (36.0-47.0); HEMOGLOBIN 12.6 g/dL (12.0-15.5); LYMPH # 2.2 x10^3/uL (1.0-4.8); LYMPH % 22 % (24-48); MEAN CORPUSCULAR HEMOGLOBIN 30 pg (25-35); MEAN CORPUSCULAR HGB CONC 33 g/dL (31-37); MEAN CORPUSCULAR VOLUME 92 fL (79-100); MONO % 12 % (0-9); NEUT % 63 % (31-73); PLATELET COUNT 241 x10^3/uL (140-400); RED BLOOD COUNT 4.14 x10^6/uL (3.50-5.40); RED CELL DISTRIBUTION WIDTH 13.5 % (11.5-14.5); WHITE BLOOD COUNT 10.2 x10^3/uL (4.0-11.0)
[2016-12-18 06:16] LABS: ALBUMIN 2.5 g/dL (3.4-5.0); ALBUMIN/GLOBULIN RATIO 0.7 (1.0-1.7); CALCIUM 8.3 mg/dL (8.5-10.1); GFR 61.4; POTASSIUM 3.8 mmol/L (3.5-5.1); TOTAL BILIRUBIN 0.3 mg/dL (0.2-1.0)
[2016-12-18 07:00] VITALS: BP 117/80
--- NOTE | 2016-12-18 08:58 | RAD ---
Right upper quadrant abdominal ultrasound History: Abdominal pain, pancreatitis, evaluate for cholecystitis. Comparison: None. Technique: Transabdominal ultrasound images are obtained. Findings: Pancreas is suboptimally visualized, but may be heterogeneous. Liver is increased in echogenicity. No focal hepatic masses are identified. Right hepatic lobe measures 15.8 cm. Gallbladder has an unremarkable appearance. Common bile duct measures normally at 5 mm in diameter. The right kidney measures 10.2 cm in length and is without evidence of obstruction or stone. Visualized portions of the IVC have normal caliber. Impression: 1. No evidence of cholelithiasis or cholecystitis. 2. Echogenic liver, compatible fatty liver disease. 3. Question heterogeneous pancreas, which would be compatible with provided history of pancreatitis.
[2016-12-18] MEDS: FAMOTIDINE 20 MG/2 ML VIAL IVP SCH ×2 (09:27→21:02)
--- NOTE | 2016-12-18 10:42 | PDOC ---
Subjective: Subjective: Pain might be a little better. Would like to try drinking. Objective: Vital Signs: Vital Signs Date Time Temp Pulse Resp B/P (MAP) Pulse Ox O2 Delivery O2 Flow Rate FiO2 12/18/16 07:00 98.1 73 18 117/80 (92) 96 Room Air 98.1 Labs: Laboratory Tests Test 12/17/16 10:45 12/18/16 04:55 White Blood Count 12.1 x10^3/uL 10.2 x10^3/uL Red Blood Count 4.56 x10^6/uL 4.14 x10^6/uL Hemoglobin 14.1 g/dL 12.6 g/dL Hematocrit 40.2 % 38.2 % Mean Corpuscular Volume 88 fL 92 fL Mean Corpuscular Hemoglobin 31 pg 30 pg Mean Corpuscular Hemoglobin Concent 35 g/dL 33 g/dL Red Cell Distribution Width 13.7 % 13.5 % Platelet Count 303 x10^3/uL 241 x10^3/uL Neutrophils (%) (Auto) 65 % 63 % Lymphocytes (%) (Auto) 20 % 22 % Monocytes (%) (Auto) 12 % 12 % Eosinophils (%) (Auto) 3 % 3 % Basophils (%) (Auto) 1 % 1 % Neutrophils # (Auto) 7.8 x10^3uL 6.4 x10^3uL Lymphocytes # (Auto) 2.4 x10^3/uL 2.2 x10^3/uL Monocytes # (Auto) 1.4 x10^3/uL 1.3 x10^3/uL Eosinophils # (Auto) 0.3 x10^3/uL 0.3 x10^3/uL Basophils # (Auto) 0.1 x10^3/uL 0.1 x10^3/uL Segmented Neutrophils % 45 % Band Neutrophils % 13 % Lymphocytes % 22 % Monocytes % 16 % Eosinophils % 1 % Metamyelocytes % 3 % Platelet Estimate Adequate Prothrombin Time 12.8 SEC Prothromb Time International Ratio 1.0 Sodium Level 135 mmol/L 141 mmol/L Potassium Level 3.3 mmol/L 3.8 mmol/L Chloride Level 95 mmol/L 106 mmol/L Carbon Dioxide Level 29 mmol/L 28 mmol/L Anion Gap 11 7 Blood Urea Nitrogen 12 mg/dL 9 mg/dL Creatinine 1.1 mg/dL 1.0 mg/dL Estimated GFR (Cockcroft-Gault) 55.0 61.4 Glucose Level 305 mg/dL 214 mg/dL Calcium Level 9.9 mg/dL 8.3 mg/dL Magnesium Level 2.2 mg/dL Total Bilirubin 0.4 mg/dL 0.3 mg/dL Direct Bilirubin 0.2 mg/dL Aspartate Amino Transf (AST/SGOT) 50 U/L 39 U/L Alanine Aminotransferase (ALT/SGPT) 91 U/L 65 U/L Alkaline Phosphatase 226 U/L 162 U/L Creatine Kinase 50 U/L Creatine Kinase MB (Mass) < 0.5 ng/mL Creatine Kinase MB Relative Index % Troponin I Quantitative < 0.017 ng/mL [id number]-Smz-[id number]-Type Natriuretic Peptide 31 pg/mL Total Protein 8.4 g/dL 6.0 g/dL Albumin 3.1 g/dL 2.5 g/dL Lipase 426 U/L 331 U/L Thyroid Stimulating Hormone (TSH) 1.533 uIU/mL Serum Test, Qualitative Negative BUN/Creatinine Ratio 9 Albumin/Globulin Ratio 0.7 Imaging: Abd US 12/18/16 Impression: 1. No evidence of cholelithiasis or cholecystitis. 2. Echogenic liver, compatible fatty liver disease. 3. Question heterogeneous pancreas, which would be compatible with provided history of pancreatitis. 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 Lipase now WNL, still has pain. Continue medical therapy, try sips of water. ?LIGIA URIBE-TAYLOR MAC Dec 18, 2016 10:42
[2016-12-18] MEDS ORDERED: MORPHINE SULFATE 2 MG/ML DISP.SYRIN. IV PRN (10:45)
[2016-12-18] MEDS ORDERED: DOCUSATE SODIUM 100 MG CAPSULE. PO PRN (10:45)
[2016-12-18] MEDS ORDERED: hydrALAZINE 20 MG/ML VIAL. IVP PRN (10:45)
[2016-12-18] MEDS ORDERED: ONDANSETRON PF 4 MG/2 ML VIAL. IV PRN (10:45)
[2016-12-18] MEDS ORDERED: ACETAMINOPHEN 325 MG TABLET. PO PRN (10:45)
[2016-12-18] MEDS ORDERED: traMADol 50 MG TABLET PO PRN (10:45)
[2016-12-18 10:53] VITALS: BP 138/84
[2016-12-18] MEDS ORDERED: DEXTROSE 50% 25 GM / 50ML DISP.SYRIN. IV PRN (11:00)
[2016-12-18 11:08] LABS: CHOLESTEROL 271 mg/dL (0-200); HDLC 20 mg/dL (40-60); NON-HDL CHOLESTEROL 251 mg/dL (0-129)
[2016-12-18 11:27] LABS: TRIGLYCERIDES 728 mg/dL (0-150)
[2016-12-18 11:29] LABS: CHOLESTEROL/HDL RATIO 13.6
[2016-12-18] MEDS: INSULIN ASPART 300 UNITS/3 ML INSULN.PEN SQ SCH ×2 (12:12→17:24)
--- NOTE | 2016-12-18 12:29 | PDOC ---
PROGRESS NOTES Chief Complaint Chief Complaint 1. Acute pancreatitis, first episode, no clear etiology 2. NOn etoh drinker 3. Mild hypokalemia sec to emesis/GI loss 4. Elevated LFTs, mild 5./ elevated alk phosph 6. elevated BS (300s) with no dx DM 7, ANTIONE, sec to GI loss 8.HLD PLAN: fu with GI lipase daily ivf pain control clear liquid diet if want check hba1c, add lipitor for now dvt , gi ppx History of Present Illness History of Present Illness still abd pain, 5/10 no vomiting, but + nausea lipase normal Vitals Vitals Vital Signs Date Time Temp Pulse Resp B/P (MAP) Pulse Ox O2 Delivery O2 Flow Rate FiO2 12/18/16 10:53 98.2 78 18 138/84 (102) 98 Room Air 98.2 Physical Exam General: Alert, Oriented X3, Cooperative, No acute distress, mild distress, Other (from pain on abd exam) Heart: Regular rate, Normal S1 Abdomen: Soft, Other (middle abd moderate tenderness) Extremities: No clubbing, No cyanosis, No edema, Normal pulses, No tenderness/ swelling Skin: No rashes, No breakdown, No significant lesion Labs LABS Laboratory Tests Test 12/18/16 04:55 12/18/16 11:04 White Blood Count 10.2 x10^3/uL (4.0-11.0) Red Blood Count 4.14 x10^6/uL (3.50-5.40) Hemoglobin 12.6 g/dL (12.0-15.5) Hematocrit 38.2 % (36.0-47.0) Mean Corpuscular Volume 92 fL (79-100) Mean Corpuscular Hemoglobin 30 pg (25-35) Mean Corpuscular Hemoglobin Concent 33 g/dL (31-37) Red Cell Distribution Width 13.5 % (11.5-14.5) Platelet Count 241 x10^3/uL (140-400) Neutrophils (%) (Auto) 63 % (31-73) Lymphocytes (%) (Auto) 22 % (24-48) Monocytes (%) (Auto) 12 % (0-9) Eosinophils (%) (Auto) 3 % (0-3) Basophils (%) (Auto) 1 % (0-3) Neutrophils # (Auto) 6.4 x10^3uL (1.8-7.7) Lymphocytes # (Auto) 2.2 x10^3/uL (1.0-4.8) Monocytes # (Auto) 1.3 x10^3/uL (0.0-1.1) Eosinophils # (Auto) 0.3 x10^3/uL (0.0-0.7) Basophils # (Auto) 0.1 x10^3/uL (0.0-0.2) Sodium Level 141 mmol/L (136-145) Potassium Level 3.8 mmol/L (3.5-5.1) Chloride Level 106 mmol/L (98-107) Carbon Dioxide Level 28 mmol/L (21-32) Anion Gap 7 (6-14) Blood Urea Nitrogen 9 mg/dL (7-20) Creatinine 1.0 mg/dL (0.6-1.0) Estimated GFR (Cockcroft-Gault) 61.4 BUN/Creatinine Ratio 9 (6-20) Glucose Level 214 mg/dL (70-99) Calcium Level 8.3 mg/dL (8.5-10.1) Total Bilirubin 0.3 mg/dL (0.2-1.0) Aspartate Amino Transf (AST/SGOT) 39 U/L (15-37) Alanine Aminotransferase (ALT/SGPT) 65 U/L (14-59) Alkaline Phosphatase 162 U/L (46-116) Total Protein 6.0 g/dL (6.4-8.2) Albumin 2.5 g/dL (3.4-5.0) Albumin/Globulin Ratio 0.7 (1.0-1.7) Triglycerides Level 728 mg/dL (0-150) Cholesterol Level 271 mg/dL (0-200) LDL Cholesterol, Calculated mg/dL (0-100) VLDL Cholesterol, Calculated 146 mg/dL (0-40) Non-HDL Cholesterol Calculated 251 mg/dL (0-129) HDL Cholesterol 20 mg/dL (40-60) Cholesterol/HDL Ratio 13.6 Lipase 331 U/L (73-393) Glucose (Fingerstick) 181 mg/dL (70-99) Review of Systems Review of Systems no fever, chills, sob or chest pain Assessment and Plan Assessmemt and Plan Problems Medical Problems: (1) Intractable abdominal pain Status: Acute (2) Nausea and vomiting Status: Acute (3) Pancreatitis Status: Acute Problems: Comment Review of Relevant I have reviewed the following items shakir (where applicable) has been applied. Labs Laboratory Tests Test 12/17/16 09:50 12/17/16 10:45 12/18/16 04:55 12/18/16 11:04 Urine Collection Type Unknown Urine Color Hellen Urine Clarity Clear Urine pH 6.0 Urine Specific [place] >=1.030 Urine Protein 30 mg/dL (NEG-TRACE) Urine Glucose (UA) >=1000 mg/dL (NEG) Urine Ketones (Stick) 15 mg/dL (NEG) Urine Blood Large (NEG) Urine Nitrite Negative (NEG) Urine Bilirubin Negative (NEG) Urine Urobilinogen Dipstick 1.0 mg/dL (0.2 mg/dL) Urine Leukocyte Esterase Negative (NEG) Urine RBC >40 /HPF (0-2) Urine WBC 0 /HPF (0-4) Urine Squamous Epithelial Cells Few /LPF Urine Bacteria Few /HPF (0-FEW) Urine Opiates Screen Pos (NEG) Urine Methadone Screen Neg (NEG) Urine Barbiturates Neg (NEG) Urine Phencyclidine Screen Neg (NEG) Urine Amphetamine/Methamphetamine Neg (NEG) Urine Benzodiazepines Screen Pos (NEG) Urine Cocaine Screen Neg (NEG) Urine Cannabinoids Screen Neg (NEG) Urine Ethyl Alcohol Neg (NEG) White Blood Count 12.1 x10^3/uL (4.0-11.0) 10.2 x10^3/uL (4.0-11.0) Red Blood Count 4.56 x10^6/uL (3.50-5.40) 4.14 x10^6/uL (3.50-5.40) Hemoglobin 14.1 g/dL (12.0-15.5) 12.6 g/dL (12.0-15.5) Hematocrit 40.2 % (36.0-47.0) 38.2 % (36.0-47.0) Mean Corpuscular Volume 88 fL (79-100) 92 fL (79-100) Mean Corpuscular Hemoglobin 31 pg (25-35) 30 pg (25-35) Mean Corpuscular Hemoglobin Concent 35 g/dL (31-37) 33 g/dL (31-37) Red Cell Distribution Width 13.7 % (11.5-14.5) 13.5 % (11.5-14.5) Platelet Count 303 x10^3/uL (140-400) 241 x10^3/uL (140-400) Neutrophils (%) (Auto) 65 % (31-73) 63 % (31-73) Lymphocytes (%) (Auto) 20 % (24-48) 22 % (24-48) Monocytes (%) (Auto) 12 % (0-9) 12 % (0-9) Eosinophils (%) (Auto) 3 % (0-3) 3 % (0-3) Basophils (%) (Auto) 1 % (0-3) 1 % (0-3) Neutrophils # (Auto) 7.8 x10^3uL (1.8-7.7) 6.4 x10^3uL (1.8-7.7) Lymphocytes # (Auto) 2.4 x10^3/uL (1.0-4.8) 2.2 x10^3/uL (1.0-4.8) Monocytes # (Auto) 1.4 x10^3/uL (0.0-1.1) 1.3 x10^3/uL (0.0-1.1) Eosinophils # (Auto) 0.3 x10^3/uL (0.0-0.7) 0.3 x10^3/uL (0.0-0.7) Basophils # (Auto) 0.1 x10^3/uL (0.0-0.2) 0.1 x10^3/uL (0.0-0.2) Segmented Neutrophils % 45 % (35-66) Band Neutrophils % 13 % (0-9) Lymphocytes % 22 % (24-48) Monocytes % 16 % (0-10) Eosinophils % 1 % (0-5) Metamyelocytes % 3 % (0-0) Platelet Estimate Adequate (ADEQUATE) Prothrombin Time 12.8 SEC (11.7-14.0) Prothromb Time International Ratio 1.0 (0.8-1.1) Sodium Level 135 mmol/L (136-145) 141 mmol/L (136-145) Potassium Level 3.3 mmol/L (3.5-5.1) 3.8 mmol/L (3.5-5.1) Chloride Level 95 mmol/L (98-107) 106 mmol/L (98-107) Carbon Dioxide Level 29 mmol/L (21-32) 28 mmol/L (21-32) Anion Gap 11 (6-14) 7 (6-14) Blood Urea Nitrogen 12 mg/dL (7-20) 9 mg/dL (7-20) Creatinine 1.1 mg/dL (0.6-1.0) 1.0 mg/dL (0.6-1.0) Estimated GFR (Cockcroft-Gault) 55.0 61.4 Glucose Level 305 mg/dL (70-99) 214 mg/dL (70-99) Calcium Level 9.9 mg/dL (8.5-10.1) 8.3 mg/dL (8.5-10.1) Magnesium Level 2.2 mg/dL (1.8-2.4) Total Bilirubin 0.4 mg/dL (0.2-1.0) 0.3 mg/dL (0.2-1.0) Direct Bilirubin 0.2 mg/dL (0.0-0.2) Aspartate Amino Transf (AST/SGOT) 50 U/L (15-37) 39 U/L (15-37) Alanine Aminotransferase (ALT/SGPT) 91 U/L (14-59) 65 U/L (14-59) Alkaline Phosphatase 226 U/L (46-116) 162 U/L (46-116) Creatine Kinase 50 U/L (26-192) Creatine Kinase MB (Mass) < 0.5 ng/mL (0.0-3.6) Creatine Kinase MB Relative Index % (0-4) Troponin I Quantitative < 0.017 ng/mL (0.000-0.055) YI-Btq-S-Type Natriuretic Peptide 31 pg/mL (0-124) Total Protein 8.4 g/dL (6.4-8.2) 6.0 g/dL (6.4-8.2) Albumin 3.1 g/dL (3.4-5.0) 2.5 g/dL (3.4-5.0) Lipase 426 U/L (73-393) 331 U/L (73-393) Thyroid Stimulating Hormone (TSH) 1.533 uIU/mL (0.358-3.74) Serum Test, Qualitative Negative (NEG) BUN/Creatinine Ratio 9 (6-20) Albumin/Globulin Ratio 0.7 (1.0-1.7) Triglycerides Level 728 mg/dL (0-150) Cholesterol Level 271 mg/dL (0-200) LDL Cholesterol, Calculated mg/dL (0-100) VLDL Cholesterol, Calculated 146 mg/dL (0-40) Non-HDL Cholesterol Calculated 251 mg/dL (0-129) HDL Cholesterol 20 mg/dL (40-60) Cholesterol/HDL Ratio 13.6 Glucose (Fingerstick) 181 mg/dL (70-99) Laboratory Tests Test 12/18/16 04:55 12/18/16 11:04 White Blood Count 10.2 x10^3/uL (4.0-11.0) Red Blood Count 4.14 x10^6/uL (3.50-5.40) Hemoglobin 12.6 g/dL (12.0-15.5) Hematocrit 38.2 % (36.0-47.0) Mean Corpuscular Volume 92 fL (79-100) Mean Corpuscular Hemoglobin 30 pg (25-35) Mean Corpuscular Hemoglobin Concent 33 g/dL (31-37) Red Cell Distribution Width 13.5 % (11.5-14.5) Platelet Count 241 x10^3/uL (140-400) Neutrophils (%) (Auto) 63 % (31-73) Lymphocytes (%) (Auto) 22 % (24-48) Monocytes (%) (Auto) 12 % (0-9) Eosinophils (%) (Auto) 3 % (0-3) Basophils (%) (Auto) 1 % (0-3) Neutrophils # (Auto) 6.4 x10^3uL (1.8-7.7) Lymphocytes # (Auto) 2.2 x10^3/uL (1.0-4.8) Monocytes # (Auto) 1.3 x10^3/uL (0.0-1.1) Eosinophils # (Auto) 0.3 x10^3/uL (0.0-0.7) Basophils # (Auto) 0.1 x10^3/uL (0.0-0.2) Sodium Level 141 mmol/L (136-145) Potassium Level 3.8 mmol/L (3.5-5.1) Chloride Level 106 mmol/L (98-107) Carbon Dioxide Level 28 mmol/L (21-32) Anion Gap 7 (6-14) Blood Urea Nitrogen 9 mg/dL (7-20) Creatinine 1.0 mg/dL (0.6-1.0) Estimated GFR (Cockcroft-Gault) 61.4 BUN/Creatinine Ratio 9 (6-20) Glucose Level 214 mg/dL (70-99) Calcium Level 8.3 mg/dL (8.5-10.1) Total Bilirubin 0.3 mg/dL (0.2-1.0) Aspartate Amino Transf (AST/SGOT) 39 U/L (15-37) Alanine Aminotransferase (ALT/SGPT) 65 U/L (14-59) Alkaline Phosphatase 162 U/L (46-116) Total Protein 6.0 g/dL (6.4-8.2) Albumin 2.5 g/dL (3.4-5.0) Albumin/Globulin Ratio 0.7 (1.0-1.7) Triglycerides Level 728 mg/dL (0-150) Cholesterol Level 271 mg/dL (0-200) LDL Cholesterol, Calculated mg/dL (0-100) VLDL Cholesterol, Calculated 146 mg/dL (0-40) Non-HDL Cholesterol Calculated 251 mg/dL (0-129) HDL Cholesterol 20 mg/dL (40-60) Cholesterol/HDL Ratio 13.6 Lipase 331 U/L (73-393) Glucose (Fingerstick) 181 mg/dL (70-99) Medications Current Medications Morphine Sulfate 4 mg PRN Q15MIN PRN IV/SQ PAIN GREATER THAN 3/10; Start at 10:00; Stop 12/18/16 at 09:59; Status DC Sodium Chloride 1,000 ml @ 1,000 mls/hr Q1H IV Last administered on 12/17/16 10:52; Start 12/17/16 at 09:52; Stop 12/17/16 at 10:51; Status DC Ondansetron HCl (Zofran) 4 mg 1X ONCE IV Last administered on 12/17/16t 10:52 ; Start 12/17/16 at 10:00; Stop 12/17/16 at 10:01; Status DC Morphine Sulfate 5 mg 1X ONCE IV Last administered on 12/17/16 14:16; Start 12/17/16 at 14:00; Stop 12/17/16 at 14:01; Status DC Ondansetron HCl (Zofran) 4 mg PRN Q8HRS PRN IV NAUSEA/VOMITING; Start 12/17/16 at 15:00; Stop 12/17/16 at 17:04; Status DC Morphine Sulfate 4 mg PRN Q2HR PRN IV PAIN Last administered on 12/18/16 04:31 ; Start 12/17/16 at 15:00; Stop 12/18/16 at 14:59 Sodium Chloride 1,000 ml @ 125 mls/hr 1X ONCE IV Last administered on 16:53; Start 12/17/16 at 15:00; Stop 12/17/16 at 22:59; Status DC Ondansetron HCl (Zofran) 4 mg PRN Q6HRS PRN IV NAUSEA/VOMITING Last administered on 12/18/16 04:31; Start 12/17/16 at 17:02; Stop 12/18/16 at 17:01 Famotidine (Pepcid) 20 mg BID IVP Last administered on 12/18/16 09:27; Start at 21:00 Potassium Chloride 100 ml @ 100 mls/hr Q1H IV Last administered on 12/17/16 21:18; Start 12/17/16 at 18:00; Stop 12/17/16 at 19:59; Status DC Sodium Chloride 1,000 ml @ 125 mls/hr Q8H IV Last administered on 12/18/16 12: 07; Start 12/17/16 at 17:15 Diphenhydramine HCl (Benadryl) 25 mg PRN Q8HRS PRN IVP ITCHING Last administered on 12/18/16 02:21; Start 12/18/16 at 01:00 Acetaminophen (Tylenol) 650 mg PRN Q6HRS PRN PO FEVER; Start 12/18/16 at 10:45 Ondansetron HCl (Zofran) 4 mg PRN Q6HRS PRN IV NAUSEA/VOMITING; Start 12/18/16 at 10:45 Morphine Sulfate 2 mg PRN Q2HR PRN IV PAIN; Start 12/18/16 at 10:45 Tramadol HCl (Ultram) 50 mg PRN Q6HRS PRN PO PAIN; Start 12/18/16 at 10:45 Hydralazine HCl (Apresoline) 10 mg PRN Q4HRS PRN IVP ELEVATED BP, SEE COMMENTS ; Start 12/18/16 at 10:45 Docusate Sodium (Colace) 100 mg PRN DAILY PRN PO CONSTIPATION; Start 12/18/16 at 10:45 Insulin Aspart (NovoLOG) 0-9 UNITS TIDWMEALS SQ Last administered on 12/18/16t 12:12; Start 12/18/16 at 12:00 Dextrose (Dextrose 50%-Water Syringe) 12.5 gm PRN Q15MIN PRN IV SEE COMMENTS; Start 12/18/16 at 11:00 Active Scripts Active Reported No Known Medications Prior To Admisstion (Info) Each 1 Each Vitals/I & O Vital Sign - Last 24 Hours 12/17/16 12/17/16 12/17/16 12/17/16 13:03 14:03 14:16 16:00 Temp 97.9 97.9 Pulse 78 86 75 Resp 18 16 18 18 B/P (MAP) 153/91 (111) 125/88 (100) 121/76 (91) Pulse Ox 100 100 93 O2 Delivery Room Air Room Air Room Air 12/17/16 12/17/16 12/17/16 12/17/16 19:00 20:00 21:19 23:00 Temp 98.1 97.8 98.1 97.8 Pulse 68 87 Resp 20 18 20 B/P (MAP) 125/78 (94) 120/80 (93) Pulse Ox 95 97 O2 Delivery Room Air Room Air Room Air Room Air 12/18/16 12/18/16 12/18/16 12/18/16 03:00 04:31 05:16 07:00 Temp 97.9 98.1 97.9 98.1 Pulse 70 73 Resp 20 20 18 18 B/P (MAP) 110/75 (87) 117/80 (92) Pulse Ox 96 96 O2 Delivery Room Air Room Air Room Air Room Air 12/18/16 10:53 Temp 98.2 98.2 Pulse 78 Resp 18 B/P (MAP) 138/84 (102) Pulse Ox 98 O2 Delivery Room Air Intake and Output 12/17/16 12/17/16 12/18/16 15:00 23:00 07:00 Intake Total 1000 ml 0 ml Balance 1000 ml 0 ml NAHOMI ESPAÑA MD Dec 18, 2016 12:29
[2016-12-18] MEDS: ENOXAPARIN 40 MG/0.4 ML SYRINGE. SQ SCH (13:57)
[2016-12-18 14:37] VITALS: BP 132/96
[2016-12-18 19:00] VITALS: BP 157/104
[2016-12-18] MEDS ORDERED: ATORVASTATIN CALCIUM 40 MG TABLET. PO SCH (21:00)
[2016-12-18 23:00] VITALS: BP 134/91
[2016-12-19] MEDS: IV NORMAL SALINE 1000ML BAG 1,000 ML IV SCH (03:55)
[2016-12-19 07:00] VITALS: BP 142/91
[2016-12-19 07:01] LABS: BASO % 0 % (0-3); EOS % 2 % (0-3); HEMATOCRIT 35.8 % (36.0-47.0); HEMOGLOBIN 12.5 g/dL (12.0-15.5); LYMPH # 1.7 x10^3/uL (1.0-4.8); LYMPH % 20 % (24-48); MEAN CORPUSCULAR HEMOGLOBIN 31 pg (25-35); MEAN CORPUSCULAR HGB CONC 35 g/dL (31-37); MEAN CORPUSCULAR VOLUME 89 fL (79-100); MONO % 10 % (0-9); NEUT % 67 % (31-73); PLATELET COUNT 256 x10^3/uL (140-400); RED BLOOD COUNT 4.04 x10^6/uL (3.50-5.40); RED CELL DISTRIBUTION WIDTH 13.4 % (11.5-14.5); WHITE BLOOD COUNT 8.2 x10^3/uL (4.0-11.0)
[2016-12-19 07:09] LABS: CALCIUM 8.4 mg/dL (8.5-10.1); CREATININE 0.8 mg/dL (0.6-1.0); GFR 79.4; POTASSIUM 3.4 mmol/L (3.5-5.1)
[2016-12-19] MEDS: FAMOTIDINE 20 MG/2 ML VIAL IVP SCH (09:08)
[2016-12-19] MEDS: INSULIN ASPART 300 UNITS/3 ML INSULN.PEN SQ SCH ×2 (09:13→12:00)
[2016-12-19] MEDS ORDERED: ATOR40TA59 PO (10:33)
[2016-12-19] MEDS ORDERED: METF1000 PO (10:33)
[2016-12-19 11:00] VITALS: BP 149/100
[2016-12-19] MEDS ORDERED: POTASSIUM CHLORIDE 20 MEQ TABLET.ER. PO ONE (11:00)
--- NOTE | 2016-12-19 11:00 | PDOC ---
Subjective: Subjective: Feels better. No pain. Would like to eat and leave. Objective: Vital Signs: Vital Signs Date Time Temp Pulse Resp B/P (MAP) Pulse Ox O2 Delivery O2 Flow Rate FiO2 12/19/16 08:00 Room Air 12/19/16 07:00 97.6 69 18 142/91 (108) 96 97.6 Labs: Laboratory Tests Test 12/18/16 11:04 12/18/16 16:15 12/18/16 21:11 12/19/16 06:35 Glucose (Fingerstick) 181 mg/dL 234 mg/dL 139 mg/dL White Blood Count 8.2 x10^3/uL Red Blood Count 4.04 x10^6/uL Hemoglobin 12.5 g/dL Hematocrit 35.8 % Mean Corpuscular Volume 89 fL Mean Corpuscular Hemoglobin 31 pg Mean Corpuscular Hemoglobin Concent 35 g/dL Red Cell Distribution Width 13.4 % Platelet Count 256 x10^3/uL Neutrophils (%) (Auto) 67 % Lymphocytes (%) (Auto) 20 % Monocytes (%) (Auto) 10 % Eosinophils (%) (Auto) 2 % Basophils (%) (Auto) 0 % Neutrophils # (Auto) 5.5 x10^3uL Lymphocytes # (Auto) 1.7 x10^3/uL Monocytes # (Auto) 0.8 x10^3/uL Eosinophils # (Auto) 0.2 x10^3/uL Basophils # (Auto) 0.0 x10^3/uL Sodium Level 141 mmol/L Potassium Level 3.4 mmol/L Chloride Level 106 mmol/L Carbon Dioxide Level 23 mmol/L Anion Gap 12 Blood Urea Nitrogen 6 mg/dL Creatinine 0.8 mg/dL Estimated GFR (Cockcroft-Gault) 79.4 Glucose Level 188 mg/dL Calcium Level 8.4 mg/dL Lipase 328 U/L Test 12/19/16 07:19 Glucose (Fingerstick) 198 mg/dL PE: GEN: NAD, looks much better LUNGS: CTAB HEART: RRR ABD: non-tender NEURO/PSYCH: A & O 3 A/P: Pancreatitis -pain resolved -lipase now normal -CT suggestive of acute pancreatitis, normal gallbladder on US w/ fatty liver -first episode, etiology unclear, note elevated trigs -- ADAT, DC if tolerates. Follow-up for PIPIDA as outpt as previously discussed. TAYLOR TERRAZAS Dec 19, 2016 11:00
--- NOTE | 2016-12-19 12:31 | PDOC3 ---
Discharge Summary [facility] Date of Admission: December 17, 2016 Discharge Date: Dec 19, 2016 Admitting Diagnosis 1. Acute pancreatitis, first episode, 2/2 HLD likely 2. NOn etoh drinker 3. Mild hypokalemia sec to emesis/GI loss 4. Elevated LFTs, mild 5./ elevated alk phosph 6. elevated BS (300s) with new diagnosed DM, type 2 likely 7, ANTIONE, sec to GI loss, vasomotor 8.HLD 9. hypokalemia Problems: Final Diagnosis CONSULTS GI Brief Hospital Course Ms. Hampton is a 41 old F, comes for abd pain N/V. Pt did abd CT WITH pcp 1D Before admission here, CT showed acute pancreatitis. In ER, lipase was only 400s. US didnot show any gallstone. Pt was found dm2, HLD, which could be the reason for pancreatitis. pT HAS no abd pain, no N/V now ,dc home when tolerate advanced diet. dc with lipitor, metformin, asked her to fu with pcp for DM control. dc time 35min. General: Alert, Oriented X3, Cooperative, No acute distress Heart: Regular rate, Normal S1 Abdomen: Soft, no tenderness Extremities: No clubbing, No cyanosis, No edema, Normal pulses, No tenderness/ swelling Skin: No rashes, No breakdown, No significant lesion Problems: Disposition home CONDITION AT DISCHARGE: Improved Diet gi soft Scheduled Atorvastatin Calcium (Atorvastatin Calcium), 40 MG PO QHS Metformin Hcl (Glucophage), 1,000 MG PO BIDWMEALS Discontinued Medications Info (No Known Medications Prior To Admisstion), 1 EACH , (Reported) Follow Up pcp in 2 weeks NAHOMI ESPAÑA MD Dec 19, 2016 12:31
[2016-12-19] MEDS: ENOXAPARIN 40 MG/0.4 ML SYRINGE. SQ SCH (13:00)
== END 2016-12-19 14:00 | disposition home or self-care (01) | DRG 438 ==
LOC: ER 09:44 → 5 SOUTH 13:45
PROVIDERS: ADMIT Internal Medicine; ATTEND Internal Medicine
DX: K85.90 Acute pancreatitis without necrosis or infection, unspecified (principal); N17.0 Acute kidney failure with tubular necrosis; I10 Essential (primary) hypertension; F17.210 Nicotine dependence, cigarettes, uncomplicated; E87.6 Hypokalemia; E11.65 Type 2 diabetes mellitus with hyperglycemia; K76.0 Fatty (change of) liver, not elsewhere classified; E78.5 Hyperlipidemia, unspecified; R00.0 Tachycardia, unspecified; Z79.899 Other long term (current) drug therapy; Z88.8 Allergy status to other drugs, medicaments and biological substances; Z88.1 Allergy status to other antibiotic agents; Z98.51 Tubal ligation status
CPT/HCPCS: 36415; 71010; 76705; 80048; 80053; 80061; 80076; 81001; 82553; 82962; 83036; 83690; 83735; 83880; 84443; 84484; 84703; 85007; 85027; 85610; 93005; 96361; 96374; 96375; G0481; J1200; J1650; J1815; J2270; J2405; J3480; J7030; S0028; 99285-25

== ENCOUNTER → 2017-02-26 | Outpatient (CLI) | payer BC ==
[~2017-02-26] MED LIST changes: -IOHEXOL 300 MG/ML 100ML VIAL. IV ONE
--- NOTE | 2017-02-26 14:15 | KCIC ---
AP lateral lumbar spine Indication: FINDINGS: Negative for compression fracture. There is subtle retrolisthesis of L3 on L4. There is mild multilevel degenerative disc height loss. Facet arthropathy is noted at L4-5 and L5-S1. SI joints are open and corticated. IMPRESSION: Mild degenerative disc and facet disease. Negative for compression fracture. Electronically signed by: Tony Robles MD (02/26/2017 2:12 PM) [place] [id number]
== END | disposition home or self-care (01) ==
LOC: KCIC 13:35
PROVIDERS: ATTEND Nurse Practitioner Family
DX: M51.36 Other intervertebral disc degeneration, lumbar region (principal); G62.9 Polyneuropathy, unspecified
CPT/HCPCS: 72100

== ENCOUNTER → 2018-08-16 | Outpatient (CLI) | payer BC ==
--- NOTE | 2018-08-16 16:00 | KCIC ---
Bilateral digital screening mammograms with 3-D tomosynthesis: Reason for examination: Routine baseline screening. Bilateral mammograms in CC and oblique projections were obtained with 2-D imaging and 3-D tomosynthesis imaging on a Siemens Inspiration unit and reviewed on the workstation. Interpretation was made with the benefit of CAD. The skin and nipples show no abnormalities. No abnormal axillary lymph nodes are seen. The breast parenchyma shows scattered fatty and fibroglandular density. (Breast density: Category B.) There are small nodular parenchymal densities seen bilaterally which can be further evaluated with ultrasound. There are no suspicious calcifications. Impression: Small nodular parenchymal densities bilaterally. Recommend further evaluation with ultrasound. BI-RADS Category 0: Incomplete: Need additional imaging evaluation. "Our facility is accredited by the [employer] Mammography Program.". This patient's information has been entered into a reminder system for the patient to be notified with the results of her examination and a target date for the next mammogram. Electronically signed by: Melanie Rios MD (08/16/2018 3:55 PM) [id number]
== END | disposition home or self-care (01) ==
LOC: KCIC MAMMO 10:54
PROVIDERS: ATTEND Nurse Practitioner Family
DX: Z12.31 Encounter for screening mammogram for malignant neoplasm of breast (principal)
CPT/HCPCS: 77063; 77067

== ENCOUNTER → 2018-08-24 | Outpatient (CLI) | payer BC ==
--- NOTE | 2018-08-24 15:54 | KCIC ---
Bilateral breast ultrasound: Reason for examination: Nodular densities bilaterally on screening mammogram. Comparison is made to mammographic exam dated 08/16/2018. Bilateral whole breast ultrasound including evaluation of all 4 quadrants and the retroareolar and axillary regions of both breasts was performed. In the right breast at the 2:00 position 3 cm from the nipple, there is a small 2.6 mm hypoechoic fibrocystic type lesion. In the 4:00 position 3 cm from the nipple, there is an elongated 3.3 mm hypoechoic fibrocystic lesion. In the 11:00 position 5 cm from the nipple, there is a 3.1 mm hypoechoic fibrocystic type lesion. No suspicious nodules are seen. No abnormal appearing lymph nodes are seen in the right axilla. In the left breast at the 3:00 position 8 cm from the nipple, there is a 3.8 mm hypoechoic lesion with echogenic focus which may represent a small intramammary lymph node. In the 4:00 position 4 cm from the nipple, there is a hypoechoic benign-appearing 2.9 mm fibrocystic type lesion. In the 6:00 position 5 cm from the nipple, there is a small 1.7 mm hypoechoic fibrocystic type lesion. In the 12:00 position there is a small 5.4 mm hyperechoic circumscribed lesion which may represent a small fibroadenoma. No suspicious-appearing nodules are seen. No abnormal appearing lymph nodes are seen in the left axilla. IMPRESSION: Multiple small benign-appearing cystic/fibrocystic and fibroadenomatous type lesions which are all subcentimeter in size and have benign appearances. No suspicious-appearing lesions are seen. Recommend 6 month follow-up with ultrasound. BI-RADS Category 3: Probably Benign. "Our facility is accredited by the [employer] Mammography Program." This patient's information has been entered into a reminder system for the patient to be notified with the results of her examination and a target date for the next mammogram. Electronically signed by: Melanie Rios MD (08/24/2018 3:49 PM) [id number]
== END | disposition home or self-care (01) ==
LOC: KCIC US 07:59
PROVIDERS: ATTEND Nurse Practitioner Family
DX: N64.89 Other specified disorders of breast (principal)
CPT/HCPCS: 76641